=== PATIENT | male | born 1950 | race Caucasian/White ===

== ENCOUNTER 2024-06-30 01:27 | Day surgery (SDC) | payer MEDICARE, SELFPAY ==
[2024-06-22 13:50] VITALS: BMI 27.5
--- NOTE | 2024-06-22 14:06 | PC.NURSE ---
Report to the Outpatient Waiting Room, entrance under the green pavilion located off [facility], at time ___7:30AM____ on date ___06/30/24____. Planned Procedure Time: ___9:30AM .? Time changes happen often and if your time is changed the preop area will call you the afternoon before. - You and your visitor will be asked to self-screen and do not enter if you have any COVID symptoms. Please call surgeon if you need to reschedule. - A mask is optional within the hospital at this time. - No food from midnight and no drink after 1:30am until time of surgery and no smoking. Take only the following medications with a SIP of water on the morning of surgery: ____MORNING EYE DROPS DO NOT STOP ANY OF YOUR OTHER PRESCRIPTION MEDICATIONS PRIOR TO SURGERY EXCEPT THE FOLLOWING Medications to discontinue per physician ___HOLD ASPIRIN PER DR ALARCON Please no make-up, nail hungarian, hairspray, perfume, deodorant, or body powder the day of surgery.? No jewelry (including any body piercings) or valuables the day of surgery, leave them at home.? Please take a shower or bath the night before, or the morning of, surgery with an antibacterial soap.? Wear comfortable, loose fitting clothing.? Children are encouraged to wear pajamas. - Jewelry must be removed prior to entering the operating room.? Rings and piercings that are not removed may be cut off. - The hospital will not accept responsibility for valuables.? - Please leave all valuables, including medications, at home the day of surgery. If you are going home after surgery, a licensed commercial truck driver must drive you home.? - NO public transportation without another adult if you receive anesthesia. - We recommend that an adult stay with you for 24 hours following discharge. - We also recommend that you do not drive, make important decision, drink alcoholic beverages, or take any drugs that were not prescribed by your health care provider for at least 24 hours after your discharge time. For Pediatric surgeries, we recommend two adults accompany the child home. Follow any additional instructions given to you from your surgeon. Telephone instructions given to ____PATIENT and asked if any additional questions and then verbalized understanding. Patient advised to call surgeon office or pre surgery nurse liaison [phone] if any additional questions.
--- NOTE | 2024-06-29 17:20 | P.PNAN_ITS ---
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 Patient Data Age: 73 Gender: M Height: 1.78 m Weight: 87 kg Allergies Allergy/AdvReac Type Severity Reaction Status Date / Time No Known Allergies Allergy Unverified 06/22/24 13:46 Home Medications Medication Instructions Recorded Confirmed Type aspirin 81 mg tablet,delayed 81 mg PO DAILY 06/22/24 06/22/24 History release atorvastatin 10 mg tablet 10 mg PO DAILY 06/22/24 06/22/24 History dorzolamide 22.3 mg-timolol 6.8 1 drp EACH EYE BID 06/22/24 06/22/24 History mg/mL eye drops glipizide 5 mg tablet, extended 5 mg PO QAM 06/22/24 06/22/24 History release 24 hr latanoprost 0.005 % eye drops 1 drp EACH EYE HS 06/22/24 06/22/24 History lisinopril 10 mg tablet 10 mg PO QAM 06/22/24 06/22/24 History metformin 1,000 mg tablet 1,000 mg PO BID 06/22/24 06/22/24 History tramadol 50 mg tablet 50 mg PO Q6H PRN pain #12 tabs 06/30/24 Rx Patient hx anesthesia problems: none Family hx anesthesia problems: none Results Review: All pre-operative results and documents have been reviewed as part of the pre- operative evaluation. [facility] Social History Social History Smoking packs per day: 0.5 Smoking cigarettes per day: 10.0 Years smoked: 3 Smoking pack-years: 1.50 Smoking status: Former smoker Tobacco type: cigarettes Smokeless tobacco user: chewing tobacco Smoking end date: 02/28/1969 Additional smoking assessment comments: CURRENTLY CHEWS TOBACCO DAILY Alcohol intake: current Drinks per week: 42 Living arrangements: with family Additional living arrangements comments: Spiritual care concerns: No Anes - Eval Final PreProcedure Day of Procedure 06/29/24 17:20 Patient weight: overweight Heart: regular rate and rhythm Lungs: clear to auscultation and normal air movement Airway: Mallampati scale class II and other (patient has one upper tooth) Neurological: alert and oriented Last oral intake: >/= 8 hours ASA classification: III Emergent: no Anesthetic plan: proceed Anesthesia type and monitoring: general LMA and standard monitoring Results Review: All pre-operative results and documents have been reviewed as part of the pre- operative evaluation. Informed Consent: The patient's anesthetic plan and its attendant risks and benefits were discussed with the patient/family/POA. Questions were solicited and answers provided to the satisfaction of the patient/family/POA.
[2024-06-30] VITALS (8 sets, daily range): BP systolic 104–175; BP diastolic 61–87; PULSE 69–79; RESP 12–23; TEMP 36.2–37.1; O2SAT 97–100
--- NOTE | 2024-06-30 07:02 | WPDHPUPDATE1 ---
History and Physical Update Update Date/Time: 06/30/24 07:02 Patient seen and examined in pre-operative holding area. No interval change in medical history or symptoms. Patient recalls previous discussion of benefits and alternatives to procedure. Continues to desire to proceed with left cheek lesion excision possible integra placement. Reviewed procedure, post-op expectations and risks including but not limited to bleeding, infection, injury to nerve/vessel, recurrenc,e incomplete exicsion,partial/total graft loss, no change or worsening of symptoms. I discussed the possible use of assistants and their participation in the case. Patient stated understanding and signed the consent form wishing to proceed.
--- NOTE | 2024-06-30 07:03 | P.OP_ITS ---
Procedure Note - Detailed Date of Procedure 06/30/24 Pre-op Diagnosis Neoplasm of uncertain behavior of skin Post-op Diagnosis Same Procedure Performed excision left cheek neoplasm, frozen section and integra placement Surgeon Dianne Watkins MD Transit Clerk jessica watson pa-c Anesthesia MAC Description of Procedure Patient was seen in the preoperative holding area where the left cheek lesion was marked consent form was signed. Patient was taken back to the operating room on the stretcher in the supine position. Time-out was performed with Anesthesia, surgeon, and staff agreeing on patient's name, site, and surgery to be performed. SCDs were placed on the lower extremities and inflated. Antibiotics were given IV. After general anesthesia was administered proceeded with injecting 9 cc of 1% lidocaine with epinephrine and 0.5% Marcaine plain for local block. After the left cheek was prepped and draped in usual sterile fashion I proceeded with making a circular incision around the round protuberant lesion with 1 cm margins through skin and dermis with a 15 blade scalpel. Fifteen blade and Bovie cautery was used to resect this specimen in the subcutaneous pre fascial plane. I proceeded with harvesting additional margins at the superior inferior left and right margins to sent for frozen section. I irrigated with normal saline and hemostasis with Bovie cautery. This defect measured 6.5 x 5.5 cm. Once I receive the phone call from pathology regarding the frozen sections noting that these additional margins appeared clear of any malignancy we proceeded with placing a large piece of Integra bilayer as primary closure was not possible given size and location of defect and other reconstruction methods would not be prudent til final pathology has been resulted. The Integra was trimmed appropriately to fit the defect. The remaining Integra was scraped off of the silicone sheet and spread along the lesion to improve thickness of the eventual reconstruction and improve contour. The Integra was tacked in place with 3-0 nylon suture and running 4-0 chromic. A Xeroform bolster dressing with cotton balls was then secured to the graft using the previously placed 3-0 nylon tacking sutures. There was good compression and bolstering of the Integra graft. I injected another 5 cc of 1% lidocaine with epinephrine and 0.5% Marcaine plain for postoperative anesthesia. A dressing of 4x4s, ABDs and a head wrap was then applied. The patient was awakened from anesthesia and transferred to the recovery room in stable condition. Complications: None Estimated blood loss: 8 cc Disposition: Patient tolerated the procedure well and will be going home later today. Jessica Watson PA-C was essential for positioning, hemostasis, graft placement and dressing placement [facility] [place] Surgery - Charge Forward: Surgery Billing ([id number] same for jessica mathis )
[2024-06-30] MEDS: LACTATED RINGERS 1,000 ML 30 ML IV CONT (08:15)
[2024-06-30 08:18] LABS: Glucose Point of Care 234 mg/dl (65-105)
[2024-06-30] MEDS: ceFAZolin 2 GM/D5W 50 ML 2 GM/50 ML BAG IVPB (09:14)
[2024-06-30] MEDS: LIDOCAINE/EPINEPHRINE 0.5%/1:200,000 50 ML VIAL 30 ML INFILTRATE (09:43)
--- NOTE | 2024-06-30 09:43 | SUR.OPER ---
Incision made at 0930. Left Cheek Lesion 1200 Margin, 3 o'clock margin, 6 o'clock margin and 09 o'clock margin sent for frozen at 0933. Received by Irma in lab at 0935. Left Cheek Lesion with 12 o'clock stitch sent for frozen at 0937. Received by Irma at 0941
--- NOTE | 2024-06-30 10:01 | SUR.OPER ---
Left cheek lesion 1200 stitch was sent for permanent, not frozen section
--- NOTE | 2024-06-30 10:11 | SUR.OPER ---
Pathologist called and spoke to Dr. Watkins to discuss results of frozen section at 1012
[2024-06-30 10:55] LABS: Glucose Point of Care 210 mg/dl (65-105)
== END 2024-06-30 12:37 | disposition home or self-care (01) ==
PROVIDERS: PCP Family Medicine Sports Medicine; Visit Provider Plastic Surgery
PROC: (CPT 11646; principal; 2024-06-30 09:30)
DX: C43.39 Malignant melanoma of other parts of face (principal); F17.220 Nicotine dependence, chewing tobacco, uncomplicated; Z79.82 Long term (current) use of aspirin; Z79.84 Long term (current) use of oral hypoglycemic drugs; Z79.891 Long term (current) use of opiate analgesic
CPT/HCPCS: 11646; 15275; 15276; 82948; 88305; 88331; A9270; C9363; J0690; J2003; J2004; J2405; J2704; J3010; J7120

== ENCOUNTER 2024-08-05 01:31 | Day surgery (SDC) | payer MEDICARE, SELFPAY ==
--- NOTE | 2024-07-25 13:02 | PC.NURSE ---
Report to the Outpatient Waiting Room, entrance under the green pavilion located off [facility], at time _6 AM on date _08/05/24 . Planned Procedure Time: __7:30 AM .? Time changes happen often and if your time is changed the preop area will call you the afternoon before. - You and your visitor will be asked to self-screen and do not enter if you have any COVID symptoms. Please call surgeon if you need to reschedule. - A mask is optional within the hospital at this time. - NOTHING TO EAT OR DRINK 8 HOURS PRIOR TO SURGERY PER DR ALARCON ( 11:30 PM) 08/04/24 Take only the following medications with a SIP of water on the morning of surgery: __EYE DROPS DO NOT STOP ANY OF YOUR OTHER PRESCRIPTION MEDICATIONS PRIOR TO SURGERY EXCEPT THE FOLLOWING Medications to discontinue per physician ___ALL VITAMINS HOLD 3 DAYS PRE OP.LAST DOSE 08/01/[address] ALARCON Please no make-up, nail swedish, hairspray, perfume, deodorant, or body powder the day of surgery.? No jewelry (including any body piercings) or valuables the day of surgery, leave them at home.? Please take a shower or bath the night before, or the morning of, surgery with an antibacterial soap.? Wear comfortable, loose fitting clothing.? Children are encouraged to wear pajamas. - Jewelry must be removed prior to entering the operating room.? Rings and piercings that are not removed may be cut off. - The hospital will not accept responsibility for valuables.? - Please leave all valuables, including medications, at home the day of surgery. If you are going home after surgery, a licensed van driver must drive you home.? - NO public transportation without another adult if you receive anesthesia. - We recommend that an adult stay with you for 24 hours following discharge. - We also recommend that you do not drive, make important decision, drink alcoholic beverages, or take any drugs that were not prescribed by your health care provider for at least 24 hours after your discharge time. For Pediatric surgeries, we recommend two adults accompany the child home. Follow any additional instructions given to you from your surgeon. Telephone instructions given to __PATIENT and asked if any additional questions and then verbalized understanding. Patient advised to call surgeon office or pre surgery nurse liaison [phone] if any additional questions.
[2024-07-25 13:14] VITALS: BMI 28.3
[2024-08-05] VITALS (8 sets, daily range): BP systolic 118–158; BP diastolic 66–84; PULSE 66–79; RESP 12–16; TEMP 36.3–36.8; O2SAT 99–100
[2024-08-05 06:36] LABS: Glucose Point of Care 241 mg/dl (65-105)
--- NOTE | 2024-08-05 06:47 | WPDHPUPDATE1 ---
History and Physical Update Update Date/Time: 08/05/24 06:47 Patient seen and examined in pre-operative holding area. No interval change in medical history or symptoms. Patient remembers previous discussion of benefits and alternatives to procedure. Continues to desire to proceed with full thickness skin graft from left arm to left cheek . I reviewed the risks including but not limited to bleeding ,infection, undesireable cosmetic appearance, partial/total graft loss, no change or worsening of symptoms, donor site complications. I discussed the possible use of assistants and their level of participation in the case. Patient stated understanding and signed the consent form wishing to proceed
--- NOTE | 2024-08-05 06:49 | W.PM.PROC2 ---
Procedure Note - Detailed Date of Procedure 08/05/24 Pre-op Diagnosis left cheek wound Post-op Diagnosis Same Procedure Performed full thickness skin graft left cheek Surgeon Dianne Watkins MD Ecologist jessica watson pa-c Anesthesia General Description of Procedure Patient seen and examined in pre-op area where consent form was signed and operative site marked. Patient taken back to OR on stretcher in stable condition. Time out was performed with anesthesia, surgeon and staff agreeing on patient's name, site, and surgery to be performed. SCDs were placed on the lower extremities and inflated. Antbiotics were given IV. After general anestehsia was administered the left cheek and arm were prepped and draped in sterile fashion. I injected 10cc 1%lido with epi and 0.5%marcaine plain at recipient and donor site. I proceeded with preparing the left cheek wound recipient site for graft by using 15 blade scalpel to freshen skin edges and curette was used to debride fibrinous exudate and get down to healthy bleeding granulation tissue. The defect measured 3.5 x 2 cm I created a template for the defect which was transposed to the left medial arm. I proceeded with making an elliptiical incision around this template marking on the left inner arm through skin and dermis with 15 blade scalpel. The full thickness graft was then harvested. irrigation and bovie cautery were used followed by closure of the donor site with 3-0 vicryl and 4-0 monocryl.length of closure was 9cm I proceeded with defatting the graft and then began to suture it in place to the recipient site with a combination of 4-0 nylon and 4-0 chromics trimming in appropriately. A xeroform bolster was then fabricated and tied down utilizing the previously mentioned 4-0 nylon sutures. A dressing of dermabond, 4x4, abd and abram was applied to the left arm. 4x4 and head wrap was applied to the left cheek. The patient was awaken from anesthesia and transferred to recovery in stable condition. Compications: none EBL: 5cc Disposition: patient tolerated the procedure well will be discharged home later today jessica Watson pa-c was essential for positioning, retraction, closure and dressing placement [facility] [place] Billing Surgery - Charge Forward: Surgery Billing ([id number] same for jessica mathis )
[2024-08-05] MEDS: LACTATED RINGERS 1,000 ML 30 ML IV CONT (07:00)
--- NOTE | 2024-08-05 07:25 | WPDANESEPPF ---
Anes - Initial Pre Proc Eval Procedure: Operation Date: 08/05/24 07:30 Proposed Procedures p Left Cheek Wound Full Thickness Skin Graft - Dianne Watkins MD Date/Time: 08/05/24 07:25 Surgeon: Dianne Watkins MD Pre Op Diagnosis: left cheek wound Patient Data Age: 73 Gender: M Height: 1.78 m Weight: 88.8 kg Last Vital Signs Temp 36.3 C L 08/05/24 06:30 Pulse 79 08/05/24 06:30 Resp 14 08/05/24 06:30 BP 154/72 H 08/05/24 06:30 Pulse Ox 100 08/05/24 06:30 O2 Del Method Room Air 08/05/24 06:30 Allergies Allergy/AdvReac Type Severity Reaction Status Date / Time No Known Allergies Allergy Verified 08/05/24 06:42 Home Medications Medication Instructions Recorded Confirmed Type aspirin 81 mg tablet,delayed 81 mg PO DAILY 06/22/24 08/05/24 History release atorvastatin 10 mg tablet 10 mg PO DAILY 06/22/24 07/25/24 History dorzolamide 22.3 mg-timolol 6.8 1 drp EACH EYE BID 06/22/24 08/05/24 History mg/mL eye drops glipizide 5 mg tablet, extended 5 mg PO QAM 06/22/24 07/25/24 History release 24 hr latanoprost 0.005 % eye drops 1 drp EACH EYE HS 06/22/24 07/25/24 History lisinopril 10 mg tablet 10 mg PO QAM 06/22/24 07/25/24 History metformin 1,000 mg tablet 1,000 mg PO BID 06/22/24 07/25/24 History cyanocobalamin (vitamin B-12) 1,000 mcg PO DAILY 07/25/24 08/05/24 History 1,000 mcg capsule cephalexin 500 mg capsule 500 mg PO Q12H #14 caps 08/05/24 Rx hydrocodone 5 mg-acetaminophen 325 1 tablet PO Q6H PRN pain #8 tabs 08/05/24 Rx mg tablet Laboratory Tests 08/05/24 06:33 POC Capillary Glucose 241 H mg/dl (65-105) Patient hx anesthesia problems: none Family hx anesthesia problems: none Results Review: All pre-operative results and documents have been reviewed as part of the pre-operative evaluation. COUNTS INCLUDE 234 BEDS AT THE [facility] Social History Social History Smoking packs per day: 0.5 Smoking cigarettes per day: 10.0 Years smoked: 3 Smoking pack-years: 1.50 Smoking status: Former smoker Tobacco type: cigarettes Smokeless tobacco user: chewing tobacco Smoking end date: 08/31/68 Additional smoking assessment comments: CURRENTLY CHEWS TOBACCO Alcohol intake: current Drinks per week: 35 Alcohol use details: BEER Living arrangements: with family Additional living arrangements comments: Spiritual care concerns: No Anes - Eval Final PreProcedure Day of Procedure 08/05/24 07:25 Patient weight: overweight Heart: regular rate and rhythm Lungs: decreased breath sounds Airway: Mallampati scale class II Neurological: alert and oriented Last oral intake: >/= 8 hours ASA classification: III Emergent: no Anesthetic plan: proceed Anesthesia type and monitoring: general LMA and standard monitoring Results Review: All pre-operative results and documents have been reviewed as part of the pre-operative evaluation. Informed Consent: The patient's anesthetic plan and its attendant risks and benefits were discussed with the patient/family/POA. Questions were solicited and answers provided to the satisfaction of the patient/family/POA.
[2024-08-05] MEDS: ceFAZolin 2 GM/D5W 50 ML 2 GM/50 ML BAG IVPB (07:28)
[2024-08-05] MEDS: LIDO 1%/EPINEPHRINE 1:100,000 50 ML VIAL 10 ML INFILTRATE (08:03)
[2024-08-05 08:27] LABS: Glucose Point of Care 205 mg/dl (65-105)
== END 2024-08-05 10:10 | disposition home or self-care (01) ==
PROVIDERS: PCP Family Medicine Sports Medicine; Visit Provider Plastic Surgery
PROC: (CPT 15240; principal; 2024-08-05 07:30)
DX: Z48.817 Encounter for surgical aftercare following surgery on the skin and subcutaneous tissue (principal); F17.220 Nicotine dependence, chewing tobacco, uncomplicated; Z79.82 Long term (current) use of aspirin; Z79.84 Long term (current) use of oral hypoglycemic drugs; Z79.891 Long term (current) use of opiate analgesic; Z85.820 Personal history of malignant melanoma of skin
CPT/HCPCS: 15240; 15004; 82948; J0690; J2003; J2004; J2405; J2704; J3010; J7120